=== PATIENT | female | born 1980 | race Caucasian/White ===

== ENCOUNTER 2024-05-12 06:15 | Emergency (ER) | payer BC ==
[2024-05-12 06:49] LABS: BASOPHILS ABSOLUTE AUTO 0.07 K/uL (0.00-0.10); BASOPHILS PERCENT AUTO 0.5 % (0.1-1.3); EOSINOPHILS ABSOLUTE AUTO 0.51 K/uL (0.00-0.40); EOSINOPHILS PERCENT AUTO 3.6 % (0.0-5.4); HEMATOCRIT 37.2 % (34.3-46.0); HEMOGLOBIN 12.8 g/dL (11.2-15.5); IMMATURE GRAN ABSOLUTE AUTO 0.08 K/uL (0.00-0.23); IMMATURE GRAN PERCENT AUTO 0.6 % (0.0-0.7); LYMPHOCYTES ABSOLUTE AUTO 2.04 K/uL (0.8-3.3); LYMPHOCYTES PERCENT AUTO 14.5 % (11.4-47.7); MEAN CORPUSCULAR HEMOGLOBIN 29.7 pg (31.6-35.5); MEAN CORPUSCULAR HGB CONC 34.4 g/dL (31.6-35.5); MEAN CORPUSCULAR VOLUME 86.3 fL (81.4-99.0); MONOCYTES ABSOLUTE AUTO 0.66 K/uL (0.20-0.90); MONOCYTES PERCENT AUTO 4.7 % (3.3-12.6); NEUTROPHILS ABSOLUTE AUTO 10.68 K/uL (1.0-7.6); NEUTROPHILS PERCENT AUTO 76.1 % (40.0-78.1); PLATELET COUNT,PLT 323 K/uL (130-375); RED BLOOD CELL COUNT 4.31 M/uL (3.77-5.24)
[2024-05-12] MEDS: Cyclobenzaprine 10 MG Tab PO ONE (06:55)
[2024-05-12] MEDS: fentaNYL 100 MCG/2 ML SDV IM ONE (06:55)
[2024-05-12 07:13] LABS: ALANINE AMINOTRANSFERASE,ALT 49 U/L (12-78); ALBUMIN 3.5 g/dL (3.4-5.0); ALKALINE PHOSPHATASE 101 U/L (46-116); ASPARTATE AMNIOTRANSFERASE,AST 24 U/L (15-37); BILIRUBIN TOTAL 0.5 mg/dL (0.2-1.0); BLOOD UREA NITROGEN,BUN 15 mg/dL (7-18); CALCIUM 8.5 mg/dL (8.5-10.1); CARBON DIOXIDE,CO2 29 mmol/L (21-32); CHLORIDE,CL 100 mmol/L (100-108); EST CRCL DRUG DOSING (CG) 77.37 mL/min; ESTIMATED GFR 73 mL/min (>60); GLUCOSE RANDOM 139 mg/dL (74-106); POTASSIUM,K 4.2 mmol/L (3.6-5.2); PROTEIN TOTAL,TP 7.2 g/dL (6.4-8.2); SODIUM,NA 137 mmol/L (140-148)
[2024-05-12 07:15] LABS: ANION GAP 12.2 mmol/L (5.0-14.0); TROPONIN I HIGH SENSITIVITY < 4.0 pg/mL (<=60.3)
[2024-05-12] MEDS: methylPREDNISolone Sodium Succinate 125 MG/2 ML SDV IVPUSH ONE (07:47)
[2024-05-12] MEDS: Bupivacaine 0.25% 10 ML SDV INJECT ONE ×2 (07:47→08:12)
[2024-05-12] MEDS: Ketorolac 30 MG/ML SDV IVPUSH ONE (07:47)
[2024-05-12] MEDS ORDERED: Bupivacaine 0.25% 10 ML SDV ONE (08:04)
== END 2024-05-12 08:24 | disposition home or self-care (01) ==
LOC: JP.ED 06:15
DX: M25.511 Pain in right shoulder (principal); R73.03 Prediabetes; I10 Essential (primary) hypertension; Z90.49 Acquired absence of other specified parts of digestive tract; Z79.899 Other long term (current) drug therapy
CPT/HCPCS: 36415; 71046; 80053; 83605; 84484; 85025; 93005; 96374; 96375; 99284; A9270; J1885; J2919; J3490